=== PATIENT | female | born 1995 | race Caucasian/White ===

== ENCOUNTER 2021-08-07 12:25 | Outpatient (CLI) | payer OTHER, SELFPAY ==
[2021-08-07] VITALS (11 sets, daily range): BP systolic 124–134; BP diastolic 73–90; PULSE 84–111; RESP 18; TEMP 36.2; BMI 38.4
[2021-08-07 13:17] LABS: Nitrazine Paper, PH Positive
--- NOTE | 2021-08-07 13:27 | PC.NURSE ---
per pt took one of her own Valium at 1321 to relax and to prevent pt from having a seizure due to needle sticks. verbalized to wait approximately 10 min. before starting an IV on pt.
[2021-08-07] MEDS: betamethasone susp 6 mg/mL 5 mL 12 MG IM (13:35)
--- NOTE | 2021-08-07 13:41 | PM.SDS ---
Short Stay Summary Providers Date of Admit/Discharge: 08/07/21 Attending Provider: Jimbo Palumbo MD Chief Complaint: Possible SROM HPI History of Present Illness Abby Escalante is a pleasant 26 year old 1 female at 33 weeks and 1 day based on a first trimester ultrasound. The patient has had an unremarkable . Her labs have been within normal limits. About an hour before arriving at the hospital, the patient stood up and had a gush of fluid followed by a continued trickle. She did not have any contractions that she could feel. As result she came to the hospital where she was evaluated. In the hospital she was found to be nitrazine positive. A speculum exam demonstrated copious amounts of fluid in the vaginal vault. The cervix was also found to be 2 cm dilated 50% effaced and -2 station. The patient has no medical problems with exception of having seizures prior to blood draws or IVs if she does not take Valium before hand. Review of Systems General: Reports: 10 or more systems reviewed and unremarkable except in HPI and below Const: Reports: fatigue; Denies: fever(s) Eyes: Denies: change in vision Card: Denies: chest pain Musc: Reports: back pain Galdino/Lymph: Denies: easy bruising Home Meds/Allergies Home Medications and Allergies Allergies Allergy/AdvReac Type Severity Reaction Status Date / Time Penicillins Allergy ADR-Seizure Verified 08/07/21 13:34 PFSH Acute Female Reproductive History: : 1 Vitals/I&O/Wt Last Vital Signs Temp 97.2 F L 08/07/21 13:01 Pulse 84 08/07/21 13:29 BP 134/79 08/07/21 13:29 Weight last 48 hrs Weight 217 lb Physical Exam Const: COMMON NORMALS: patient oriented x3 and alert HENMT: COMMON NORMALS: moist oral mucous membranes HEAD & SCALP: normal to inspection Chest: COMMONS NORMALS: normal inspection of the chest Resp: COMMON NORMALS: clear to auscultation bilaterally AUSCULTATION: clear to auscultation bilaterally Cardio: COMMON NORMALS: regular rate and regular rhythm RATE: regular rate RHYTHM: regular rhythm GI: INSPECTION: Yes normal to inspection and Yes other (Gravid) : OTHER: Refer to HPI. Extremity: COMMON NORMALS: normal to inspection GENERAL: Yes edema (Trace) Neuro: COMMON NORMALS: patient oriented x3, moves all extremities and no sensory deficits noted SENSORIUM/ORIENTATION: Yes alert Psych: COMMON NORMALS: mental status grossly normal Skin: COMMON NORMALS: no rashes or lesions noted GENERAL SKIN EXAM: no rashes or lesions noted Hospital Course Discharge Summary Contractions have been noted on the tocometer, but the patient does not feel any contractions. The patient was started on betamethasone. She was also started on vancomycin as she is penicillin allergic I spoke with Dr. Trevizo at [facility] in [place] regarding the patient. She has agreed except the patient. We will transfer the patient as soon as we have the paperwork ready to go and get EMS to take her. Discharge Plan Discharge Patient Disposition: Xfer Other Activity: Bedrest Attestations Medical Necessity Statement*: Patient required hospital stay because of return rupture of membranes. She also required transfer to a facility with a higher level of care including neonatology for the care of her baby after delivery. Time Spent in Patient Care*: greater than 30 min Quality Metrics Clinical Quality Measures: [ No reported AMI, CVA or VTE this stay] Coding Level of Care Code Acute Kick Press Setter for Alejo Herron
[2021-08-07] MEDS: lactated ringers 1,000 ML 125 ML IV (14:58)
--- NOTE | 2021-08-07 15:22 | ANES.PROC ---
Anesthesia Procedures Procedure/Date: 08/07/21 Other Information: After sterile prep. 0.3 ml 1% lidocaine infiltrated and using real time US guidance for vessel selection an 20 g PIV was inserted with real time visualization of needle entry and real time visualization of catheter advancement by pre op JEANETTE Perrin under my direct supervision. Tolerated well. 1 attempt.
== END 2021-08-07 15:37 | disposition other institution (70) ==
LOC: OPOB 12:33 → OBGYN 12:35
PROVIDERS: Absent Provider Family Medicine; Visit Provider Family Medicine
DX: O42.913 Preterm premature rupture of membranes, unspecified as to length of time between rupture and onset of labor, third trimester (principal); Z3A.33 33 weeks gestation of pregnancy
CPT/HCPCS: 12345; 36415; 59025; 83986; 96372; 99211; J0702; J3370; J7040